=== PATIENT | female | born 1995 | race Caucasian/White ===

== ENCOUNTER 2019-03-02 00:31 | Emergency (ER) | payer BC ==
[~2019-03-02] VITALS: Wt 67.1 kg
== END 2019-03-02 01:34 | disposition home or self-care (01) ==
LOC: ED 00:31
DX: S61.305A Unspecified open wound of left ring finger with damage to nail, initial encounter (principal); W22.8XXA Striking against or struck by other objects, initial encounter; Y93.89 Activity, other specified; Y92.89 Other specified places as the place of occurrence of the external cause; Y99.8 Other external cause status